=== PATIENT | male | born 1965 | race Caucasian/White ===

== ENCOUNTER → 2016-06-03 | Outpatient (CLI) | payer OTHER ==
--- NOTE | 2016-06-03 14:27 | DIAGNOSTIC IMAGING REPORT ---
HEAD CT NONCONTRAST CT DOSE: 638.56 mGycm HISTORY: Severe headache. TECHNIQUE: Multiaxial CT images of the head were performed without the use of intravenous contrast. Automated exposure control was utilized for this study. Comparison: None. Findings: The paranasal sinuses and mastoid air cells are clear. The calvarium and skull base are intact. The ventricles and sulci are within normal limits. There is no mass, hematoma, midline shift, or acute infarct. Impression: No acute intracranial abnormality. Electronically signed by: Amador Gonzalez M.D. 06/03/2016 2:25 PM Dictated Date/Time: 06/03/2016 2:21 PM
== END | disposition home or self-care (01) ==
LOC: C.CTS 14:04
PROVIDERS: ATTEND Family Medicine
DX: R51 Headache (principal); B18.2 Chronic viral hepatitis C; E11.9 Type 2 diabetes mellitus without complications; E78.2 Mixed hyperlipidemia; G89.28 Other chronic postprocedural pain; J44.9 Chronic obstructive pulmonary disease, unspecified; J45.909 Unspecified asthma, uncomplicated; K08.9 Disorder of teeth and supporting structures, unspecified; K29.70 Gastritis, unspecified, without bleeding; L20.89 Other atopic dermatitis